=== PATIENT | male | born 1960 | race Hispanic/Latino ===

== ENCOUNTER 2019-11-24 06:43 | Day surgery (SDC) | payer OTHER, MEDICARE ==
[~2019-11-24] VITALS: Ht 167.6 cm; Wt 121.8 kg
[~2019-11-24 06:43] MED LIST: SODIUM CHLORIDE 0.9% 1000ML 1,000 ML IV ONE
[2019-11-24] MEDS ORDERED: METF-446 PO (08:07)
[2019-11-24] MEDS ORDERED: CAPTOPRIL (08:07)
[2019-11-24] MEDS ORDERED: NAPROXEN (08:07)
[2019-11-24] MEDS ORDERED: PROP1TAB PO (08:07)
[2019-11-24] MEDS ORDERED: SPIR50TA5 PO (08:07)
[2019-11-24] MEDS ORDERED: CYANOCOBALAMIN (08:07)
[2019-11-24] MEDS ORDERED: RIFA550T PO (08:07)
[2019-11-24] MEDS ORDERED: LACTULOSE (08:07)
[2019-11-24] MEDS ORDERED: DICYCLOMINE (08:07)
[2019-11-24] MEDS ORDERED: FURO40TA5 PO (08:07)
[2019-11-24] MEDS ORDERED: FOLIC ACID (08:07)
[2019-11-24] MEDS ORDERED: OMEP20CA12 PO (08:07)
[2019-11-24 08:08] VITALS: BP 143/69
[2019-11-24] MEDS ORDERED: PROPOFOL 10 MG/ML 20ML VIAL IV ONE (08:32)
[2019-11-24 08:50] VITALS: BP 104/58
[2019-11-24 08:55] VITALS: BP 109/65
[2019-11-24 09:26] VITALS: BP 136/69
== END 2019-11-24 09:35 | disposition home or self-care (01) ==
LOC: ENDO 06:43 → DAH 06:43 → ENDO 09:35
PROVIDERS: ATTEND Internal Medicine Gastroenterology
DX: I85.00 Esophageal varices without bleeding (principal); K74.60 Unspecified cirrhosis of liver; K85.00 Idiopathic acute pancreatitis without necrosis or infection; K76.6 Portal hypertension; K31.89 Other diseases of stomach and duodenum; I10 Essential (primary) hypertension; E11.9 Type 2 diabetes mellitus without complications; E66.01 Morbid (severe) obesity due to excess calories; Z79.899 Other long term (current) drug therapy; Z79.84 Long term (current) use of oral hypoglycemic drugs; Z86.010 Personal history of colon polyps; Z68.41 Body mass index [BMI] 40.0-44.9, adult; Z87.891 Personal history of nicotine dependence; Z82.49 Family history of ischemic heart disease and other diseases of the circulatory system; Z83.3 Family history of diabetes mellitus
CPT/HCPCS: 43244; 82948 ×2; A4215; A4221; A4222; A4223; A4606; A4620; A4663; J2704; J7030

== ENCOUNTER → 2019-12-05 | Outpatient (CLI) | payer OTHER, MEDICARE ==
[~2019-12-05] MED LIST changes: +CAPTOPRIL; +CYANOCOBALAMIN; +DICYCLOMINE; +FOLIC ACID; +FURO40TA5 PO; +LACTULOSE; +METF-446 PO; +OMEP20CA12 PO; +PROP1TAB PO; +RIFA550T PO; -SODIUM CHLORIDE 0.9% 1000ML 1,000 ML IV ONE; +SPIR50TA5 PO
[2019-12-05 10:11] LABS: BASOPHILS % (AUTO) 0.6 % (0.0-5.0); EOSINOPHILS % (AUTO) 3.4 % (0.0-8.0); HEMATOCRIT 33.3 % (42-54); LYMPHOCYTES % (AUTO) 23.5 % (21.0-51.0); MEAN CORPUSCULAR HEMOGLOBIN 20.2 pg (27.0-33.0); MEAN CORPUSCULAR HGB CONC 27.6 g/dL (32.0-36.0); MONOCYTES % (AUTO) 11.4 % (3.0-13.0); NEUTROPHILS % (AUTO) 60.9 % (40.0-77.0); PLATELET COUNT (AUTO) 70 K/uL (130-400); RED BLOOD CELL COUNT(AUTO) 4.56 MIL/uL (4.50-6.20); RED CELL DISTRIBUTION WIDTH 19.4 % (11.0-15.5)
[2019-12-05 10:23] LABS: ALBUMIN 2.9 g/dL (3.5-5.0); BILIRUBIN,TOTAL 2.7 mg/dL (0.2-1.0); POTASSIUM 3.4 mmol/L (3.5-5.1); TOTAL PROTEIN, SERUM 8.5 g/dL (6.0-8.3)
[2019-12-05 10:30] LABS: INR 1.36 (0.85-1.15); PROTHROMBIN TIME 14.1 SEC (9.6-11.6)
[2019-12-05 10:50] LABS: PLATELET MORPHOLOGY COMMENT DECREASED
== END | disposition home or self-care (01) ==
LOC: LAB 08:55
PROVIDERS: ATTEND Internal Medicine Gastroenterology
DX: K74.60 Unspecified cirrhosis of liver (principal)
CPT/HCPCS: 36415; 80053; 82105; 85025; 85610

== ENCOUNTER 2020-11-26 07:34 | Day surgery (SDC) | payer OTHER, MEDICARE ==
[2020-11-26] VITALS (7 sets, daily range): BP systolic 95–143; BP diastolic 38–80
[~2020-11-26] VITALS: Ht 167.6 cm; Wt 119.7 kg
[~2020-11-26 07:34] MED LIST changes: -DICYCLOMINE; -LACTULOSE; +LACTULOSE PO; +SODIUM CHLORIDE 0.9% 1000ML 1,000 ML IV ONE
[2020-11-26] MEDS ORDERED: PROPOFOL 10 MG/ML 20ML VIAL IV ONE (11:15)
== END 2020-11-26 12:32 | disposition home or self-care (01) ==
LOC: DAH 07:34 → ENDO 07:34
PROVIDERS: ATTEND Internal Medicine Gastroenterology
DX: K70.31 Alcoholic cirrhosis of liver with ascites (principal); Z20.828 Contact with and (suspected) exposure to other viral communicable diseases; K31.7 Polyp of stomach and duodenum; K29.70 Gastritis, unspecified, without bleeding; D50.9 Iron deficiency anemia, unspecified; R60.0 Localized edema; K72.90 Hepatic failure, unspecified without coma; I10 Essential (primary) hypertension; E11.9 Type 2 diabetes mellitus without complications; Z79.84 Long term (current) use of oral hypoglycemic drugs; Z79.899 Other long term (current) drug therapy; Z86.010 Personal history of colon polyps; Z80.0 Family history of malignant neoplasm of digestive organs
CPT/HCPCS: 43239; 43251; 82948 ×2; A4215; A4221; A4223; A4606; A4620; A4663; C9803; J2704; J7030; U0003

== ENCOUNTER 2023-12-30 08:42 | Day surgery (SDC) | payer OTHER, MEDICARE ==
[2023-12-30] VITALS (10 sets, daily range): BP systolic 97–123; BP diastolic 50–69; PULSE 62–66; RESP 13–18
[~2023-12-30] VITALS: Ht 175.3 cm; Wt 122.5 kg
[~2023-12-30 08:42] MED LIST changes: +0.9%NACL 1000ML 1,000 ML IV ONE; -CAPTOPRIL; -RIFA550T PO; -SODIUM CHLORIDE 0.9% 1000ML 1,000 ML IV ONE
[2023-12-30] MEDS ORDERED: DOXY100C5 PO (10:13)
[2023-12-30] MEDS ORDERED: VITAD50000 PO (10:13)
[2023-12-30] MEDS ORDERED: ASPI-1005 PO (10:13)
[2023-12-30] MEDS ORDERED: FERS325 PO (10:15)
[2023-12-30] MEDS ORDERED: ACET-2079 PO (10:15)
[2023-12-30] MEDS ORDERED: RIFA550T PO (10:16)
[2023-12-30] MEDS ORDERED: PROPOFOL 10 MG/ML 20ML VIAL IV ONE (10:21)
== END 2023-12-30 11:45 | disposition home or self-care (01) ==
LOC: ENDO 08:42 → DAH 08:42 → ENDO 11:45
PROVIDERS: ATTEND Internal Medicine Gastroenterology
DX: I85.10 Secondary esophageal varices without bleeding (principal); K29.50 Unspecified chronic gastritis without bleeding; K70.31 Alcoholic cirrhosis of liver with ascites; K31.89 Other diseases of stomach and duodenum; K76.6 Portal hypertension; K72.90 Hepatic failure, unspecified without coma; I10 Essential (primary) hypertension; E11.9 Type 2 diabetes mellitus without complications; J90 Pleural effusion, not elsewhere classified; K42.9 Umbilical hernia without obstruction or gangrene; Z82.49 Family history of ischemic heart disease and other diseases of the circulatory system; Z83.3 Family history of diabetes mellitus; Z80.0 Family history of malignant neoplasm of digestive organs; Z86.010 Personal history of colon polyps; Z79.84 Long term (current) use of oral hypoglycemic drugs; Z79.82 Long term (current) use of aspirin; Z79.899 Other long term (current) drug therapy; Z98.890 Other specified postprocedural states
CPT/HCPCS: 82948; 43239; J7030 ×2; J2704; A4620; A4215 ×2; A4223; A7002; A4222; A4221; A4663; A4606; J3490

== ENCOUNTER → 2024-01-20 | Outpatient (CLI) | payer OTHER, MEDICARE ==
[~2024-01-20] MED LIST changes: -0.9%NACL 1000ML 1,000 ML IV ONE; +ACET-2079 PO; +ASPI-1005 PO; -CYANOCOBALAMIN; +DOXY100C5 PO; +FERS325 PO; -FOLIC ACID; +IOHEXOL 350 MG/ML 100ML INFUS..BTL IV ONE; -LACTULOSE PO; +RIFA550T PO; +VITAD50000 PO
== END | disposition home or self-care (01) ==
LOC: RAH 08:52
PROVIDERS: ATTEND Internal Medicine Gastroenterology
DX: K42.9 Umbilical hernia without obstruction or gangrene (principal); J90 Pleural effusion, not elsewhere classified; R16.0 Hepatomegaly, not elsewhere classified; R16.1 Splenomegaly, not elsewhere classified; I85.00 Esophageal varices without bleeding; K43.9 Ventral hernia without obstruction or gangrene; R93.2 Abnormal findings on diagnostic imaging of liver and biliary tract
CPT/HCPCS: 74170; Q9967

== ENCOUNTER → 2025-04-03 | Outpatient (CLI) | payer OTHER, MEDICAID ==
[~2025-04-03] MED LIST changes: -IOHEXOL 350 MG/ML 100ML INFUS..BTL IV ONE
[2025-04-03 09:49] LABS: BASOPHILS # (AUTO) 0.03 K/uL (0.00-0.20); BASOPHILS % (AUTO) 0.3 % (0.0-5.0); EOSINOPHILS # (AUTO) 0.14 K/uL (0.00-0.70); EOSINOPHILS % (AUTO) 1.6 % (0.0-8.0); HEMATOCRIT 33.2 % (42-54); IMMATURE GRANULOCYTE ABSOLUTE 0.05 K/uL (0-1); LYMPHOCYTES # (AUTO) 1.4 K/uL (1.0-4.8); LYMPHOCYTES % (AUTO) 15.7 % (21.0-51.0); MEAN CORPUSCULAR HEMOGLOBIN 36.4 pg (27.0-33.0); MEAN CORPUSCULAR HGB CONC 34.9 g/dL (32.0-36.0); MEAN CORPUSCULAR VOLUME 104.1 fL (79-99); MONOCYTES # (AUTO) 0.6 K/uL (0.1-1.0); MONOCYTES % (AUTO) 6.8 % (3.0-13.0); NEUTROPHILS # (AUTO) 6.8 K/uL (1.8-7.7); PLATELET COUNT (AUTO) 84 K/uL (130-400); RED BLOOD CELL COUNT(AUTO) 3.19 MIL/uL (4.50-6.20); RED CELL DISTRIBUTION WIDTH 15.1 % (11.0-15.5)
[2025-04-03 10:06] LABS: ALBUMIN 2.2 g/dL (3.5-5.0); BILIRUBIN,TOTAL 2.9 mg/dL (0.2-1.0); POTASSIUM 5.1 mmol/L (3.5-5.1); TOTAL PROTEIN, SERUM 7.9 g/dL (6.0-8.3)
== END | disposition home or self-care (01) ==
LOC: LAB 09:13
PROVIDERS: ATTEND Internal Medicine Gastroenterology
DX: R77.2 Abnormality of alphafetoprotein (principal)
CPT/HCPCS: 36415; 80053; 85025

== ENCOUNTER → 2025-04-09 | Outpatient (CLI) | payer OTHER, MEDICAID ==
[~2025-04-09] MED LIST changes: +IOHEXOL-350 75 ML VIAL IV ONE
--- NOTE | 2025-04-09 10:08 | HMCIMG ---
Exam Type: CT ABDOMEN W/WO 3 PHASE Clinical Information: Abnormality of alphafetoprotein Comparison: None Findings: The liver is irregular in contour suggestive of cirrhosis and there is a low-attenuation irregular enhancement lesion of the caudate lobe and partial right lobe measuring 10 x 6.4 cm. A neoplastic lesion is suspected. There is splenomegaly and there are splenic hilar and gastroesophageal junction varices and these findings are consistent with portal hypertension. There is partial thrombosis of the portal vein. The lung bases are clear. Umbilical hernia is seen containing only peritoneal fat and minimal fluid. IMPRESSION: Cirrhosis and portal venous hypertension. Partial thrombosis of the portal vein. Neoplastic lesion suspected right liver lobe and caudate lobe.
== END | disposition home or self-care (01) ==
LOC: RAH 08:35
PROVIDERS: ATTEND Internal Medicine Gastroenterology
DX: K74.60 Unspecified cirrhosis of liver (principal); K76.6 Portal hypertension; I81 Portal vein thrombosis; R16.1 Splenomegaly, not elsewhere classified; K22.0 Achalasia of cardia; R77.2 Abnormality of alphafetoprotein
CPT/HCPCS: 74170; Q9967